=== PATIENT | female | born 1990 | race African-American/Black ===

== ENCOUNTER 2017-01-08 17:56 | Emergency (ER) | payer OTHER ==
[2017-01-08 18:16] VITALS: BP 133/94; PULSE 74; TEMP 98.4; BMI 20.2
--- NOTE | 2017-01-08 18:45 | PDOC ---
History of Present Illness - General Chief Complaint: Headache Stated Complaint: HEADACHE Time Seen by Provider: 01/08/17 18:29 History Source: Patient Exam Limitations: No Limitations - History of Present Illness Initial Comments: CHIEF COMPLAINT: 26 y/o afebrile female with no significant PMH c/o intermittent headaches for the past 5 days. HISTORY OF PRESENT ILLNESS: The patient states the headache is in the front of her head. She normally takes 1 excedrin per day and the headache resolves. She states she just wants to be evaluated. She denies f/c, n/v/d, dizziness, neck pain, changes in vision/hearing, CP, SOB, abd pain, back pain, hematuria, dysuria. Vital signs on arrival are within normal limits. REVIEW OF SYSTEMS: GENERAL/CONSTITUTIONAL: No fever/chills. No weakness. No weight change. HEAD, EYES, EARS, NOSE AND THROAT: No change in vision. No ear pain or discharge. No sore throat. CARDIOVASCULAR: No chest pain or shortness of breath. RESPIRATORY: No cough, wheezing, or hemoptysis. GASTROINTESTINAL: No abd pain, nausea, vomiting, diarrhea. GENITOURINARY: No dysuria, frequency, or change in urination. MUSCULOSKELETAL: No joint or muscle swelling or pain. No neck or back pain. SKIN: No rash or easy bruising. NEUROLOGIC: +headache. No vertigo, loss of consciousness, or loss of sensation. PHYSICAL EXAM: GENERAL: The patient is awake, alert, and fully oriented, in no acute distress. She is very well appearing and ambulatory. HEAD: Normal with no signs of trauma. ENT: Pupils equal, round and reactive to light, extraocular movements intact, sclera anicteric, conjunctiva clear. Neck supple. No photophobia. No pain with EOMs. LUNGS: Clear to auscultation bilaterally. Normal excursion. No respiratory distress or use of accessory muscles. CV: RRR, S1/S2, no MRG. Cap refill < 2 sec. ABDOMEN: Soft, non-distended, non-tender even to deep palpation, no hepatomegaly or splenomegaly, no masses. EXTREMITIES: Normal range of motion, no edema. NEUROLOGICAL: Normal speech, normal gait. CN II-XII grossly intact. PSYCH: Normal mood, normal affect. SKIN: Warm, dry, normal turgor, no rashes or lesions noted. Past History - Past Medical History Allergies/Adverse Reactions: Allergies Allergy/AdvReac Type Severity Reaction Status Date / Time No Known Allergies Allergy Verified 01/08/17 18:11 Home Medications: Ambulatory Orders No Home Medications 0 dose .ROUTE UTDICT 03/04/13 Ibuprofen [Motrin -] 600 mg PO QID #30 tablet 07/04/15 Methylergonovine Maleate [Methergine] 0.2 mg PO Q6H #4 tablet 07/04/15 Oxycodone HCl/Acetaminophen [Percocet 5/325 -] 1 tab PO Q6H PRN #20 tablet 07/04 Cephalexin Monohydrate [Keflex -] 500 mg PO BID #14 capsule 01/08/17 Asthma: No Cancer: No Cardiac Disorders: No Diabetes: No HTN: No Seizures: No Thyroid Disease: No Other medical history: DENIES. - Reproductive History (#): 5 Para: 2 Cervical CA: No Dysfunctional Uterine Bleeding: No Ectopic : No Endometrial CA: No Polycystic Ovaries: No Therapeutic (s) & number: Yes (3) Tubal Ligation: No - Psycho/Social/Smoking Cessation Hx Suicidal Ideation: No Smoking Status: Yes Smoking History: Current every day smoker Have you smoked in the past 12 months: Yes Number of Cigarettes Smoked Daily: 17 Information on smoking cessation initiated: No Hx Alcohol Use: No Drug/Substance Use Hx: Yes Substance Use Type: None Hx Substance Use Treatment: No *Physical Exam - Vital Signs Last Vital Signs Temp Pulse Resp BP Pulse Ox 98.4 F 74 19 133/94 98 01/08/17 18:11 01/08/17 18:11 01/08/17 18:11 01/08/17 18:11 01/08/17 18:11 Medical Decision Making - Medical Decision Making A/P: 26 y/o afebrile female with migraine that is resolved with excedrin. hcg - negative UA +nitrites. Will send rx for keflex Pt instructed to return to the ER with any worsening or concerning symptoms. The patient verbalizes understanding of all instructions, has no further questions and is awaiting discharge. *DC/Admit/Observation/Transfer Diagnosis at time of Disposition: UTI (urinary tract infection) Headache Qualifiers: Headache type: unspecified Headache chronicity pattern: acute headache Intractability: not intractable Qualified Code(s): R51 - Headache - Discharge Dispostion Disposition: HOME Condition at time of disposition: Good - Prescriptions Prescriptions: Cephalexin Monohydrate [Keflex -] 500 mg PO BID #14 capsule - Referrals Referrals: Jaspal Wong MD [Staff Physician] - - Patient Instructions Printed Discharge Instructions: DI for Headache, DI for Urinary Tract Infection (UTI) Additional Instructions: Discharge Instructions: -A prescription was called to your pharmacy for treatment of a UTI; please take entire 7 days -Take excedrin if needed for headache -Can take Motrin for headache as well -Drink plenty of fluids -Follow up with Dr. Wong within 2 weeks -Return to the ER with any worsening or concerning symptoms
[2017-01-08 20:00] LABS: URINE APPEARANCE CLOUDY; URINE BILIRUBIN NEGATIVE (NEGATIVE); URINE BLOOD NEGATIVE (NEGATIVE); URINE COLOR DKYELLOW; URINE GLUCOSE (UA) NEGATIVE (NEGATIVE); URINE KETONE NEGATIVE (NEGATIVE); URINE NITRITE POSITIVE (NEGATIVE); URINE PROTEIN NEGATIVE (NEGATIVE); URINE UROBILINOGEN NEGATIVE E.U./dl (0.2-1.0)
[2017-01-08 20:06] LABS: URINE LEUK ESTERASE TRACE (NEGATIVE)
[2017-01-08 20:07] LABS: URINE BACTERIA RARE /hpf (NONE SEEN); URINE MUCUS MANY; URINE RBC 9 /hpf (0-3); URINE WBC 40 /hpf (3-5)
== END 2017-01-08 20:56 | disposition home or self-care (01) ==
LOC: JERFT 17:56
DX: N39.0 Urinary tract infection, site not specified (principal); R51 Headache; I10 Essential (primary) hypertension; F17.210 Nicotine dependence, cigarettes, uncomplicated
CPT/HCPCS: 81003; 81015; 84703; 87086; 87186; 99281-25

== ENCOUNTER 2018-04-02 12:53 | Emergency (ER) | payer OTHER ==
[2018-04-02 13:03] VITALS: BP 132/60; PULSE 84; TEMP 98.6; BMI 20.3
--- NOTE | 2018-04-02 13:14 | PDOC ---
History of Present Illness - General Chief Complaint: Vaginal Bleeding Stated Complaint: Vaginal Bleeding/abd pain Time Seen by Provider: 04/02/18 13:13 - History of Present Illness Initial Comments: 28 year old female [id number] (last 2 years prior with previous ectopic) presenting with vaginal bleeding and lower abdominal cramping x 3 days. Her LMP was 02/11/18 and she has been sexually active without barrier methods. She was on Depot for a year and discontinued it approximately one year prior. She describes her bleeding as heavy, soaking through multiple pads per day and passing occasional clots as well. Denies fevers, chills, nausea, vomiting, diarrhea, weakness, palpations, cough, or other symptoms. 04/02/18 13:25 Past History - Past Medical History Allergies/Adverse Reactions: Allergies Allergy/AdvReac Type Severity Reaction Status Date / Time No Known Allergies Allergy Verified 04/02/18 12:57 Home Medications: Ambulatory Orders Nitrofurantoin Monohyd/M-Cryst [Macrobid -] 100 mg PO BID 5 Days #10 capsule Asthma: No Cancer: No Cardiac Disorders: No CVA: No COPD: No Diabetes: No HTN: No Seizures: No Thyroid Disease: No - Reproductive History (#): 5 Para: 2 Cervical CA: No Dysfunctional Uterine Bleeding: No Ectopic : No Endometrial CA: No Polycystic Ovaries: No Therapeutic (s) & number: Yes (3) Tubal Ligation: No - Immunization History Immunization Up to Date: Yes - Suicide/Smoking/Psychosocial Hx Smoking Status: Yes Smoking History: Never smoked Have you smoked in the past 12 months: Yes Number of Cigarettes Smoked Daily: 17 Information on smoking cessation initiated: No Hx Alcohol Use: No Drug/Substance Use Hx: No Substance Use Type: None Hx Substance Use Treatment: No Review of Systems - Review of Systems Constitutional: No: Chills, Diaphoresis, Fever HEENTM: No: Blurred Vision, Tearing Respiratory: No: Cough, Orthopnea, Shortness of Breath Cardiac (ROS): No: Chest Pain, Edema, Irregular Heart Rate ABD/GI: No: Constipated, Diarrhea, Nausea, Poor Appetite, Vomiting : No: Burning, Dysuria, Discharge, Frequency, Incontinence Musculoskeletal: No: Back Pain, Joint Pain, Muscle Weakness Integumentary: No: Bruising, Erythema, Flushing, Lesions Neurological: No: Headache, Numbness, Paresthesia Hematologic/Lymphatic: No: Anemia, Blood Clots, Easy Bleeding, Easy Bruising *Physical Exam - Vital Signs Last Vital Signs Temp Pulse Resp BP Pulse Ox 98.6 F 84 17 132/60 99 04/02/18 12:58 04/02/18 12:58 04/02/18 12:58 04/02/18 12:58 04/02/18 12:58 - Physical Exam General Appearance: Yes: Nourished, Appropriately Dressed. No: Apparent Distress HEENT: positive: EOMI, OLGA, Normal ENT Inspection, Normal Voice Neck: positive: Trachea midline, Normal Thyroid, Supple. negative: Tender, Rigid Respiratory/Chest: positive: Lungs Clear, Normal Breath Sounds. negative: Chest Tender, Respiratory Distress Cardiovascular: positive: Regular Rhythm, Regular Rate Female Pelvic Exam: positive: normal external exam, cervical os closed, normal adnexa, normal size ovaries, adnexal tenderness (left sided adnexal tenderness) , vaginal bleeding (small amount of dark blood in the posterior vaginal vault. No active bleeding. Small clots occasionally seen. Cervical Os closed.) Gastrointestinal/Abdominal: positive: Normal Bowel Sounds, Flat, Soft. negative : Tender Musculoskeletal: positive: Normal Inspection. negative: CVA Tenderness Extremity: positive: Normal Capillary Refill, Normal Inspection, Normal Range of Motion. negative: Tender Integumentary: positive: Normal Color, Dry, Warm Neurologic: positive: Fully Oriented, Alert, Normal Mood/Affect, Normal Response , Motor Strength 5/5 ED Treatment Course - LABORATORY CBC & Chemistry Diagram: 04/02/18 13:30 04/02/18 13:30 Medical Decision Making - Medical Decision Making 28 year old female with previous ectopic presenting with lower abdominal cramping and vaginal bleeding for the past few days. VSS and HgB 10.5 which is the highest value in our symptom and she admits to known anemia in the past. UA demonstrating UTI. CT demonstrating left sided ovarian follicle rupture. This is likely a follicular rupture with an indeterminate location of ad her BHCG is only 300. Cervical OS is closed. Given patient is overall stable, we will discharge her and have her follow up with us or OB in two days. Patient understands her return precautions. 04/02/18 17:17 Repeat vital signs stable. I spoke with Dr. Paniagua and she agrees with the plan. Patient will attempt to follow up with her on Wednesday as long as nothing acute happens in the interim. 04/02/18 17:53 *DC/Admit/Observation/Transfer Diagnosis at time of Disposition: Vaginal bleeding Qualifiers: Weeks of gestation: less than 8 weeks Qualified Code(s): Z3A.01 - Less than 8 weeks gestation of - Discharge Dispostion Disposition: HOME Condition at time of disposition: Improved Decision to Admit order: No - Prescriptions Prescriptions: Nitrofurantoin Monohyd/M-Cryst [Macrobid -] 100 mg PO BID 5 Days #10 capsule - Referrals Referrals: Aleksandra Rivera [Primary Care Provider] - Anabell Paniagua MD [Staff Physician] - - Patient Instructions Printed Discharge Instructions: DI for Vaginal Bleeding During Additional Instructions: We are unsure if your is ectopic or if it is too early to see it within your uterus. It is important that you follow up with Dr. Paniagua on Wednesday or return to the ED. Use Tylenol and ibuprofen for your pain. Please return to the ED if you have more bleeding, lightheadedness, palpitations, extreme pain or other symptoms. - Post Discharge Activity
[2018-04-02 13:54] LABS: BASO % 0.5 % (0-2.0); HEMATOCRIT 33.8 % (32.4-45.2); HEMOGLOBIN 10.5 GM/dL (10.7-15.3); LYMPH % 28.2 % (8-40); MCH 22.8 pg (25.7-33.7); MCHC 31.2 g/dl (32.0-36.0); MEAN PLT VOLUME 8.6 fl (7.5-11.1); MONO % 10.3 % (3.8-10.2); PLATELET COUNT 192 K/MM3 (134-434); RBC 4.62 M/mm3 (3.60-5.2); RDW 16.6 % (11.6-15.6); WHITE BLOOD COUNT 7.6 K/mm3 (4.0-10.0)
[2018-04-02 14:36] LABS: ALBUMIN 3.4 g/dl (3.4-5.0); ANION GAP 6 (8-16); BILIRUBIN,TOTAL 0.2 mg/dL (0.2-1.0); BLOOD UREA NITROGEN 12 mg/dL (7-18); CALCIUM 9.6 mg/dL (8.5-10.1); CHLORIDE 108 mmol/L (98-107); CO2 27 mmol/L (21-32); CREATININE 0.7 mg/dL (0.55-1.02); GLUCOSE,RANDOM 86 mg/dL (74-106); SGOT/AST 22 U/L (15-37); SGPT/ALT 33 U/L (12-78); SODIUM 141 mmol/L (136-145); TOT PROT 7.4 g/dl (6.4-8.2)
[2018-04-02 14:38] LABS: ALK PHOS 67 U/L (45-117); INR 0.96 (0.82-1.09); PROTHROMBIN TIME (PATIENT) 10.9 SEC (9.7-13.0)
--- NOTE | 2018-04-02 15:03 | PDOC ---
Attending Attestation - HPI HPI: 04/02/18 15:04 The patient is a 28 year old female, with no significant PMH, [id number] ( last 2 years prior) who presents to the emergency department with three day history of vaginal bleeding and lower abdominal cramping. Patient's LMP was 02/11/18. Patient endorses she is sexually active with no contraceptive use. Patient discontinued depot after a year of use. The patient denies chest pain, shortness of breath, headache and dizziness. Denies fever, chills, nausea, vomit, diarrhea and constipation. Denies dysuria, frequency, urgency and hematuria. Allergies: NKA Past surgical history: None reported. Social history: No reported alcohol, cigarette or drug use. PCP:Dr. Salmon - Physicial Exam PE: 04/02/18 15:03 Vitals: Triage vital signs reviewed General Appearance: No acute distress, well nourished, well developed Head: Atraumatic Eyes: Pupils equal reactive round, extraocular movement intact Ears: TM's normal bilaterally Nose: Nares patent bilaterally; no nasal congestion Throat: Posterior oropharynx without erythema, mucous membranes moist Neck: Supple; No nuchal rigidity Cardiac: Regular rate and rhythm, no murmurs, no rubs, no gallops Lungs: Clear to auscultation bilateral, good air movement bilaterally Abdomen: (+) Mild suprapubic discomfort. Soft, nondistended, normal bowel sounds , nontender to palpation Extremities: Full range of motion to all extremities, no cyanosis, clubbing, or edema Skin: Warm and dry, no rashes or lesions, no rash, no petechiae Neuro: AOX3; Cranial Nerves 2-12 grossly intact, Strength intact to all extremities, Sensation intact to all extremities, gait normal Psych: Normal mood, normal affect <Kecia Chacon - Last Filed: 04/02/18 15:04> - Resident Resident Name: Clare Zavaleta - ED Attending Attestation I have performed the following: I have examined & evaluated the patient, The case was reviewed & discussed with the resident, I agree w/resident's findings & plan, Exceptions are as noted - Medical Decision Making 04/02/18 15:48 The patient is a 28 year old female, with no significant PMH, [id number] ( last 2 years prior) who presents to the emergency department with three day history of vaginal bleeding and lower abdominal cramping. Patient's LMP was 02/11/18. Patient endorses she is sexually active with no contraceptive use. Patient discontinued depot after a year of use. Lower abdominal cramping with bleeding last menstrual period in February. Differential diagnosis includes menstrual period versus atypical menses versus threatened versus ectopic We'll check labs status hCG type and screen ultrasound observing reassessed Reevaluation: Dr. Anderson to follow up labs US and dispo 04/02/18 15:49 <Todd Champagne - Last Filed: 04/02/18 15:49>
[2018-04-02 15:09] LABS: URINE APPEARANCE SLCLOUDY; URINE BILIRUBIN NEGATIVE (<2.0 mg/dL); URINE GLUCOSE (UA) NEGATIVE (NEGATIVE); URINE KETONE NEGATIVE (NEGATIVE); URINE LEUK ESTERASE NEGATIVE (NEGATIVE); URINE NITRITE POSITIVE (NEGATIVE); URINE UROBILINOGEN NEGATIVE mg/dL (0.2-1.0)
[2018-04-02 15:10] LABS: URINE PROTEIN 1+ (NEGATIVE)
[2018-04-02 15:12] LABS: HCG,QUALITATIVE URINE POSITIVE
[2018-04-02 15:13] LABS: URINE COLOR YELLOW
[2018-04-02 15:16] LABS: EPI CELLS RARE /HPF (FEW); URINE BACTERIA MANY /hpf (NONE SEEN); URINE MUCUS RARE
--- NOTE | 2018-04-04 21:51 | EKG ---
Test Reason : Blood Pressure : / mmHG Vent. Rate : 074 BPM Atrial Rate : 074 BPM P-R Int : 140 ms QRS Dur : 080 ms QT Int : 370 ms P-R-T Axes : 076 003 036 degrees QTc Int : 410 ms NORMAL SINUS RHYTHM NONSPECIFIC T WAVE ABNORMALITY ABNORMAL ECG WHEN COMPARED WITH ECG OF 22-AUG-2013 09:11, VENT. RATE HAS DECREASED BY 43 BPM T WAVE VARIATION Confirmed by WILVER PINA, CARIDAD ([id number]) on 04/04/2018 9:51:18 PM Referred By: Confirmed By:CARIDAD PETTIT MD
== END 2018-04-02 19:04 | disposition home or self-care (01) ==
LOC: JER 12:53
DX: O26.891 Other specified pregnancy related conditions, first trimester (principal); O20.8 Other hemorrhage in early pregnancy; O34.81 Maternal care for other abnormalities of pelvic organs, first trimester; N83.292 Other ovarian cyst, left side; Z3A.01 Less than 8 weeks gestation of pregnancy
CPT/HCPCS: 36415; 76817-TC; 80053; 81003; 81015; 84702; 84703; 85025; 85610; 86850; 86900; 86901; 93005; 93010; 99283-25